=== PATIENT | female | born 1990 | race Caucasian/White ===

== ENCOUNTER → 2019-03-07 12:29 | Outpatient (BNVA) | payer MEDICAID, SELFPAY | PROVIDERS: Visit Provider Obstetrics & Gynecology | DX: O09.93 Supervision of high risk pregnancy, unspecified, third trimester (principal) | CPT/HCPCS: 81000 ==

== ENCOUNTER 2019-03-08 16:50 | Inpatient (IN) | payer MEDICAID, SELFPAY ==
[2019-03-08] VITALS (26 sets, daily range): BP systolic 0–148; BP diastolic 0–93; PULSE 86–116; RESP 18; TEMP 36.4–36.9; BMI 33.4
[2019-03-08] MEDS: miSOPROStol 100 mcg tablet 25 MCG VAGINAL ×2 (18:23→22:38)
[2019-03-08 18:45] LABS: Basophils % 0.3 %; Eosinophils # 0.1 10^3/uL (0.0-0.8); Eosinophils % 0.7 %; Hematocrit 36.1 % (37.0-47.0); Lymphocytes # 2.9 10^3/uL (0.8-4.8); Lymphocytes % 21.4 %; Mean Corpuscular HGB Conc 33.2 g/dL (30.0-36.0); Mean Corpuscular Hemoglobin 30.5 pg (28.0-34.0); Mean Corpuscular Volume 91.9 fL (81-99); Mean Platelet Volume 12.2 fL (7.4-10.4); Monocytes # 1.1 10^3/uL (0.2-0.9); Monocytes % 7.8 %; Neutrophils # 9.2 10^3/uL (1.8-7.7); Neutrophils % 69.1 %; Nucleated Red Blood Cells % 0 %; Platelet Count 232 10^3/cmm (130-400); Red Blood Count 3.93 10^6/uL (4.1-5.3); Red Cell Distribution Width 12.2 % (12.1-15.1); White Blood Count 13.4 10^3/uL (4.0-10.0)
[2019-03-08 19:21] LABS: Amphetamines Screen Urine Negative (Negative); Barbiturates Screen Urine Negative (Negative); Benzodiazepines Screen Urine Negative (Negative); Cocaine Screen Urine Negative (Negative); Opiate Screen Urine Negative (Negative); PCP Screen Urine Negative (Negative); THC Screen Urine Negative (Negative)
[2019-03-08] MEDS: fentaNYL 50 mcg/mL INJ 2mL IV (23:06)
[2019-03-09] VITALS (58 sets, daily range): BP systolic 0–156; BP diastolic 0–109; PULSE 60–114; RESP 16–19; TEMP 36.6–37.1; O2SAT 95–99
[2019-03-09] MEDS: fentaNYL 50 mcg/mL INJ 2mL IV (01:07)
[2019-03-09] MEDS: lactated ringers 1,000 ML 999 ML IV (02:12)
[2019-03-09] MEDS: dextrose 5%-lactated ringers 1,000 ML 125 ML IV (03:14)
[2019-03-09] MEDS: lidocaine 2% INJ 20 mL INJECTION ×2 (04:02→06:29)
--- NOTE | 2019-03-09 05:02 | P.PCNOB_ITS ---
Delivery Note: Date of delivery: 03/10/19 Pre-delivery diagnoses: Late term Post-delivery diagnoses: Late Term delivered Procedure: Spontaneous vaginal delivery Anesthesia: other (Pudendal block) Delivering Physician: Celestino Hernandez M.D. Estimated blood loss (mL): 300 Findings: Baby girl, OP presentation, Nuchal cord ?1, Apgars 3/8, weight 3250 g. Pre-Delivery Course: The patient is a 28yo at 41 weeks EGA who has been receiving care from [facility]. Admitted to labor and delivery for elective induction. She continues to feel movement between the contractions. She denies vaginal bleeding or rupture of membranes. LMP: 06/09/2018 Estimated date of confinement: 03/01/2019 by ultrasound CC: Induction at late term HPI: Received appropriate care. Daily vitamins since Start of care. labs have all been normal, including negative for HIV. She was found to Negative for Group B Strep from screening at 36 weeks. She has gained approximately 55 lbs throughout the . She denies a history of HTN during . Glucose tolerance screening for gestational diabetes was negative. Delivery: The patient was noted to be complete and pushing, so was placed in the dorsal lithotomy position, prepped and draped in the usual sterile fashion for a vaginal delivery. Pt. Noted to have epidural anesthesia. At time the patient delivered a Viable 41 week female weighing 3250 g with scores of 3 and 8 at one and five minutes, respectively. The vertex was delivered spontaneously over Intact perineum. The patient was asked to push and the head delivered spontaneously in the OP position, over an intact perineum. A nuchal cord was checked and 1 noted, and delivered through around head as necessary. The anterior shoulder delivered easily and the posterior shoulder followed. The remainder of the infant was easily delivered and the oropharynx and nasopharynx was bulb suctioned. The infant was noted to have spontaneous cry and spontaneous movement of all four extremities. The cord was clamped x 2 and cut and noted to have 2 arteries and one vein. The was passed to the Warmer where Nursing personnel were in attendance. The placenta delivered intact Spontaneously and the uterus Was explored. 20 units of Pitocin was placed in the IV bag to firm the uterus. Examination of the cervix and vaginal vault did not reveal any lacerations. A vaginal pack was then placed. Examination of the perineum showed First degree laceration. The First degree laceration was repaired with 3-0 Vicryl in the normal fashion in a running non locking fashion to reapproximate the laceration in layers. The vaginal pack was then removed. The patient tolerated this procedure well, and recovered in L&D with her infant OB bright. All sponge and needle counts were correct. Post-Delivery Status: Stable A&P Assessment and plan (1) Term delivered: Spontaneous vaginal delivery, first-degree laceration, baby girl, Apgars 3/8, weight 3250 g. Status: Acute Code(s): O80 - Encounter for full-term uncomplicated delivery Coding Level of Care Code Acute Switch Adjuster for Chg Fwd Diagnoses Term delivered O80
[2019-03-09] MEDS: HYDROcodone-acetaminophen 5-325 mg Tablet PO ×4 (05:31→20:56)
[2019-03-09] MEDS: oxytocin 30 UNIT/500 ML BAG 600 UNIT IV (06:30)
--- NOTE | 2019-03-09 09:27 | ANES.PREANES ---
Pre-Anesthetic Assessment Pre-Anesthetic Assessment: Height/Weight: Height 1.75 m Weight 227lbs Temp Pulse Resp BP Pulse Ox 98.2 F 84 16 121/81 97 03/09/19 08:35 03/09/19 08:35 03/09/19 08:35 03/09/19 08:35 03/09/19 08:35 Preop Diagnosis: undesired fertility Proposed Procedure: Operation Date: 03/09/19 10:20 Proposed Procedures p Bilateral Tubal Ligation(Not Applicable) - Celestino Hernandez MD Familial anesthetic complications: no problems Was Beta Tejas taken within 24 hours: N/A Last intake: pretzels and water at 0200 Social: Social History: Tobacco (couple cig a week) Exam: Pre-Anes Outpt Exam: alert, oriented x 3, clear to auscultation bilaterally and regular rate & rhythm Airway: Submandibular: WNL Cervical ROM: WNL MP: 2 Dentition: Loose (top, right side) History/ROS: No significant history except as noted and No significant complaints Pulmonary: Pulmonary: None reported CV/HEM: CV/HEM: None reported : : None reported Hepatic: Hepatic: Hepatitis (C) GI: GI: None reported Metabolic: Metabolic: None reported Musc/skel: Musc/skel: None reported Neuropsych: Neuropsych: None reported Anesthetic Plan: ASA status: II Anesthesia: General Risk of > 500 ml blood loss (7ml/kg in children): No Meds/Allergies Current Medications: Current Medications Generic Name Dose Route Start Last Admin Trade Name Freq PRN Reason Stop Dose Admin Hydrocodone Bitart /Acetaminophen 1 - 2 tab 03/09/19 05:13 03/09/19 05:31 [place] 5-325 Mg PO 2 tab Q6H PRN Administration MODERATE TO SEVER E PAIN Fentanyl 25 - 100 mcg 03/08/19 22:50 03/09/19 01:07 Sublimaze IV 50 mcg Q1H PRN Administration SEVERE PAIN Dextrose/Lactated Ringer's 1,000 mls @ 125 m ls/hr 03/08/19 23:15 03/09/19 08:24 Dextrose 5%-Lact ated Ringers IV 125 mls/hr .Q8H RAZIA Infusion Lactated Ringer's 1,000 mls @ 999 m ls/hr 03/09/19 02:00 03/09/19 03:13 Lactated Ringers IV Infused .Q1H1M PRN Infusion ANESTHESIA PFS Anesthesia Female Reproductive History: : 3 Data Anesthesia Labs: Other Labs: Laboratory Results - last 48 hr 03/08/19 03/08/19 17:30 17:50 WBC 13.4 H RBC 3.93 L Hgb 12.0 Hct 36.1 L MCV 91.9 MCH 30.5 MCHC 33.2 RDW 12.2 Plt Count 232 MPV 12.2 H Neut % (Auto) 69.1 Lymph % (Auto) 21.4 [place] % (Auto) 7.8 Eos % (Auto) 0.7 Baso % (Auto) 0.3 Neut # (Auto) 9.2 H Lymph # (Auto) 2.9 [place] # (Auto) 1.1 H Eos # (Auto) 0.1 Baso # (Auto) 0.0 Nucleated RBC % (a uto) 0 Nucleated RBCs # 0.0 Urine Opiates Scre en Negative Ur Barbiturates Sc reen Negative Ur Phencyclidine S crn Negative Ur Amphetamines Sc reen Negative U Benzodiazepines Scrn Negative Urine Cocaine Scre en Negative U Marijuana (THC) Screen Negative Cardiac Studies: No Data to Display
--- NOTE | 2019-03-09 10:09 | P.PN_ITS ---
Subjective Subjective: Interval history: 28-year-old female G3, P3 status post vaginal delivery desires permanent sterilization. Vitals/I&O/Wt Last Vital Signs Temp 98.3 F 03/09/19 09:14 Pulse 77 03/09/19 09:14 Resp 16 03/09/19 09:14 BP 123/79 03/09/19 09:14 Pulse Ox 97 03/09/19 09:14 03/08/19 03/09/19 03/09/19 22:59 06:59 14:59 Intake Total 1000 / 1000 1145.833 / 1145.833 Output Total 400 / 400 Balance 1000 / 1000 745.833 / 745.833 Weight last 48 hrs Weight 7.972 oz Weight 226 lb 7.972 oz Physical Exam Narrative: EXAM NARRATIVE: GA; alert and oriented x 3 HEENT: normal Breasts: engorged Nipples - skin intact Lungs; clear to auscultation Heart: regular rhythm, no murmurs. Abd: Appropriately tender. BS+. Uterine fundus below umbilicus. No Fundal Tenderness. Perineum: normal lochia. Extremities: no edema, no cyanosis, no tenderness. A&P Assessment and plan (1) Term delivered: Status: Acute Code(s): O80 - Encounter for full-term uncomplicated delivery Additional A&P Information Additional A&P Information: 28-year-old female G 3 P 3 status post spontaneous vaginal delivery desire permanent sterilization requesting tubal ligation. The patient was counseled regarding all methods of contraception, risk and complications. She elected to continue to proceed with the tubal ligation as planned. partial salpingectomy is associated with lower failure rates than interval tubal occlusions done via laparoscopy. She was counseled regarding the procedure, alternative, risks and complications. Complications of tubal sterilization include problems like but not limited to anesthesia, hemorrhage, organ damage, and mortality. Although pregnancies after a sterilization procedure are rare, there is substantial risk that any post-jenn rilization could be ectopic. The overall failure rate is on the order of 0.5% in the first year but a study showed that sterilization failures vary by both age at sterilization and the method used. The study also found that the risks of accumulate over time, and that for women aged 18 to 27 years, failure rates can be as high as 5% with bipolar coagulation and the spring clip. The patient was informed of the risks and benefits of the procedure. Risks included but were not limited to bleeding, infection, and injury to internal organs. The patient was counseled on the risk of sterilization failure. The patient was informed that in the event a occurs the risk of ectopic is increased. The patient was counseled that bilateral tubal ligation is intended to be permanent and nonreversible. She was also counseled that there are nonpermanent forms of control available to her. The patient expressed understanding of the risks involved, all questions were answered, and the patient consented to the procedure. Attestations Medical Necessity Statement*: In my professional opinion per admitting diagnosis Coding Level of Care Code Acute Automat Car Attendant for g Fwd Diagnoses Term delivered O80
[2019-03-09] MEDS: ceFAZolin 1,000 MG in sodium chloride 0.9% (plus) 50 ML 100 MG IV (10:25)
[2019-03-09] MEDS: sodium chloride 0.9% 1,000 ML 30 ML IV (10:27)
--- NOTE | 2019-03-09 11:11 | PM.OP ---
Operative Report Post-Operative Note Date of procedure: 03/09/19 Preop Diagnosis: Status post spontaneous vaginal delivery, desires permanent sterilization Post-op diagnosis: same Post-op Findings: Enlarged uterus Procedure Done: bilateral tubal ligation via partial salpingectomy Specimens removed/disposition: Left and right fallopian tube Surgeon: Celestino Hernandez Estimated blood loss (mL): 5 IV fluids (mL): 700 Urine output (mL): 500 Complications: None Findings: Enlarged uterus Operative Report Brief History: 28-year-old female G3, P3 status post continuous vaginal delivery desires permanent sterilization. Procedure: After assuring informed consent. The patient was informed of the risks and benefits of the procedure. Risks included but were not limited to bleeding, infection, and injury to internal organs. The patient was counseled on the risk of sterilization failure. The patient was informed that in the event a occurs the risk of ectopic is increased. The patient was counseled that bilateral tubal ligation is intended to be permanent and nonreversible. She was also counseled that there are nonpermanent forms of control available to her. The patient expressed understanding of the risks involved, all questions were answered, and the patient consented to the procedure. The patient was taken to the operating room and general anesthesia administered. Time-out procedure was performed. A small, transverse, infraumbilical skin incision was made with a scalpel, and the incision was carried down through the underlying fascia until the peritoneum was identified and entered. The left fallopian tube was identified, brought into the incision and grasped with a Lauro clamp. The tube was then followed out to the fimbria. An avascular midsection of the fallopian tube was grasped with a Bruneau clamp and brought into a knuckle. The tube was doubly ligated with an O-plain suture and transected. The specimen was sent to pathology. Excellent hemostasis was noted, and the tube was returned to the abdomen. The same procedure was performed on the opposite fallopian tube. The fascia was then closed with O-Vicryl in a single layer. The skin was closed with 3-O Monocryl in a subcuticular fashion. The patient tolerated the procedure well. Needle and sponge counts were correct times 3.
--- NOTE | 2019-03-09 11:50 | PM.PACU ---
PACU note Post-Anesthesia Exam: awake and vital signs stable
[2019-03-09] MEDS: fentaNYL 50 mcg/mL INJ 2mL IVP (12:31)
[2019-03-09 17:14] LABS: Hemoglobin 10.8 g/dL (11.5-15.3); Mean Corpuscular HGB Conc 32.7 g/dL (30.0-36.0); Mean Corpuscular Volume 88.7 fL (81-99); Mean Platelet Volume 11.5 fL (7.4-10.4); Platelet Count 208 10^3/cmm (130-400); Red Blood Count 3.72 10^6/uL (4.1-5.3); Red Cell Distribution Width 12.2 % (12.1-15.1); White Blood Count 17.7 10^3/uL (4.0-10.0)
[2019-03-09] MEDS: docusate sodium 100 mg Capsule PO (19:02)
[2019-03-10] MEDS: HYDROcodone-acetaminophen 5-325 mg Tablet PO ×2 (02:09→08:09)
[2019-03-10 04:00] VITALS: BP 110/70; PULSE 80; RESP 16; TEMP 36.6
[2019-03-10 07:05] LABS: Hematocrit 30.3 % (37.0-47.0); Hemoglobin 9.8 g/dL (11.5-15.3); Mean Corpuscular HGB Conc 32.3 g/dL (30.0-36.0); Mean Corpuscular Hemoglobin 30.4 pg (28.0-34.0); Mean Corpuscular Volume 94.1 fL (81-99); Mean Platelet Volume 11.6 fL (7.4-10.4); Platelet Count 185 10^3/cmm (130-400); Red Blood Count 3.22 10^6/uL (4.1-5.3); Red Cell Distribution Width 12.3 % (12.1-15.1); White Blood Count 13.7 10^3/uL (4.0-10.0)
[2019-03-10] MEDS: prenatal vitamin Capsule 1 CAP PO (08:09)
[2019-03-10] MEDS: docusate sodium 100 mg Capsule PO (08:09)
--- NOTE | 2019-03-10 08:42 | PM.OBGYDC ---
Discharge Providers [employer]PER[employer] Date of Admission: 03/08/19 16:50 Date of Discharge: 03/10/19 Attending Provider at Admission: Celestino Hernandez MD Attending Provider at Discharge: Celestino Hernandez MD Primary Care Provider: ROBERT Aguayo Diagnoses at Discharge Discharge Diagnosis (1) Term delivered: Status: Acute Problem details: Status post spontaneous vaginal delivery and bilateral tubal ligation Without complications postoperative day 1. Reason for Visit Reason for Visit: Reason For Visit: induction Hospital Course Hospital Course: Patient was admitted Labor and Delivery for scheduled induction. She received misoprostol for cervical ripening and progressed to have a spontaneous vaginal delivery without complications. She had requested a tubal ligation and post delivery she was scheduled for Bilateral tubal ligation via modified Royer. The permanent sterilization was performed without complications. Postoperative/ observation was uneventful. She is afebrile hemodynamically stable. Tolerating diet well. Ambulating without difficulty. Information Peripartum Data: Delivery Method: Vaginal Physical Exam Narrative: EXAM NARRATIVE: GA; alert and oriented x 3 HEENT: normal Breasts: engorged Nipples - skin intact Lungs; clear to auscultation Heart: regular rhythm, no murmurs. Abd: Appropriately tender. BS+. Uterine fundus below umbilicus. No Fundal Tenderness. Perineum: normal lochia. Extremities: no edema, no cyanosis, no tenderness. Urinary Catheter Management^: Garcia: Cath Placed During This Visit: no Discharge Data Data Completed and Pending: Pending at discharge Category Date Time Status Pathology: Surgic al [PTH] Routine Pth 03/09/19 11:01 Ordered Labs from last 24 hours 03/10/19 03/09/19 06:30 16:43 WBC 13.7 H 17.7 H RBC 3.22 L 3.72 L Hgb 9.8 L 10.8 L Hct 30.3 L 33.0 L MCV 94.1 D 88.7 MCH 30.4 29.0 MCHC 32.3 32.7 RDW 12.3 12.2 Plt Count 185 208 MPV 11.6 H 11.5 H Vitals: Last Vital Signs Temp 97.9 F 03/10/19 04:00 Pulse 80 03/10/19 04:00 Resp 16 03/10/19 04:00 BP 110/70 03/10/19 04:00 Pulse Ox 98 03/09/19 20:30 Discharge Plan Discharge Patient Disposition: Home, Self-Care Condition: Stable Prescriptions: New hydrocodone-acetaminophen 5-325 mg Tablet 1 - 2 tab PO Q4H PRN (Reason: Moderate To Severe Pain) Qty: 30 RF: 0 ibuprofen 800 mg Tablet 800 mg PO TID Qty: 60 RF: 0 docusate sodium 100 mg Capsule 100 mg PO BID Qty: 60 RF: 0 ferrous sulfate 325 mg (65 mg iron) tablet 325 mg PO BID Qty: 60 RF: 0 Continued 28 mg iron- 800 mcg Tablet 1 tab PO DAILY RF: 0 Discharge Orders: Discharge Order (Routine); Ordered 03/10/19 Ordered By: Celestino Hernandez Discharge Diet: Regular Discharge Activity: Increase activity as tolerated Patient Instructions: Female Sterilization, Vaginal Delivery (DC) Activity Restrictions/Additional Instructions: Pelvic rest for 6 weeks. 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
--- NOTE | 2019-03-10 08:58 | PC.NURSE ---
Incision clean, dry, and intact. Open to air. No redness or drainage noted. Incision at umbilicus.
[2019-03-10 12:11] VITALS: BP 126/83; PULSE 104; RESP 16; TEMP 36.7; O2SAT 98
== END 2019-03-10 12:10 | disposition home or self-care (01) | DRG 798 ==
PROVIDERS: Obstetrics & Gynecology; Admitting Provider Obstetrics & Gynecology; Visit Provider Obstetrics & Gynecology
PROC: 10E0XZZ Delivery of Products of Conception, External Approach (ICD-10-PCS; CPT 58605; principal; 2019-03-09 10:00)
DX: O48.0 Post-term pregnancy (principal); Z37.0 Single live birth; O99.334 Smoking (tobacco) complicating childbirth; F17.210 Nicotine dependence, cigarettes, uncomplicated; Z3A.41 41 weeks gestation of pregnancy; O69.81X0 Labor and delivery complicated by cord around neck, without compression, not applicable or unspecified; Z30.2 Encounter for sterilization; O70.0 First degree perineal laceration during delivery
CPT/HCPCS: 36415; 36416; 51702; 59409; 80307; 85025; 85027; 88302; 96374; 96375; 99211; J0690; J1100; J1885; J2001; J2405; J2704; J2710; J3010; J3490; J7030

== ENCOUNTER 2021-01-10 14:10 | Emergency (ER) | payer MEDICAID, SELFPAY ==
[2021-01-10 14:30] VITALS: BP 142/96; PULSE 100; RESP 20; TEMP 37; O2SAT 98; BMI 39.9
--- NOTE | 2021-01-10 14:56 | W.ED.DENTAL ---
HPI - Dental/Oral General: Chief complaint: Dental/Oral Stated complaint: Face Swelling/Dental Related Time Seen by Provider: 01/10/21 14:41 History of Present Illness: HPI Narrative: Patient is a 30-year-old female comes to the ED with dental pain and right-sided facial swelling. Dental pain started approximately 3 days ago. Dental pain is located around tooth #3. This morning she woke up and had some swelling in her upper right side of face. Pain is rated a 9 out of 10. Patient has a appointment with her dentist this January 12. Associated symptoms: Denies fever(s) or odynophagia Review of Systems Const: Denies: fever(s), chills or fatigue Eyes: Denies: change in vision or eye discomfort ENMT: Reports: dental pain; Denies: throat pain, odynophagia, nasal discharge or nasal congestion Card: Denies: chest pain, palpitations, edema, swelling of feet/ankles, dyspnea on exertion or orthopnea Resp: Denies: dyspnea, productive cough or non-productive cough GI: Denies: abdominal pain, nausea, vomiting, diarrhea, constipation or hematochezia : Denies: flank pain, dysuria or hematuria Musc: Denies: neck pain, back pain or extremity swelling Skin/Breast: Denies: rash or new lesions Neuro: Denies: headache(s), numbness in extremities or weakness in extremities PFSH ED PFSH: Medical History Hepatitis C Patient denies medical problems Denies history of: htn,dm,heart,lung,liver,kidney,thyroid,dvt/pe Surgical History History of cholecystectomy (~2015) Laparoscopy. Performed at [facility] in [place]. Hx of tubal ligation (~02/2019) Family History Unknown Patient denies medical problems Patient denies any family history of hypertension, diabetes, heart disease, stroke, hypercholesterolemia, thyroid problems, breast cancer, ovarian cancer, uterine cancer, colon ca Social History Smoking and tobacco status: current every day smoker cigarettes [ Other cigarette details: 5 cigarettes/week ] Alcohol intake: former Year of sobriety/quit date alcohol: 2018 Other details last substance use: 05/2018 Female Reproductive History: Date of last menstrual period: 01/10/21 Physical Exam Const: COMMON NORMALS: no acute distress, patient oriented x3 and alert GENERAL APPEARANCE: cooperative and comfortable HENMT: COMMON NORMALS: normocephalic HEAD & SCALP: normocephalic FACE & SINUS: edema on the right maxilla and Facial tenderness on exam of face and sinuses on the right maxilla MOUTH: Normal oral and palatal mucosa present TEETH & GINGIVA: Yes abnormal tooth and associated gingiva upper right first molar tender and with associated gingival edema, Yes caries and Yes poor dentition THROAT: posterior oropharynx normal and uvula midline Neck/C-Spine: COMMON NORMALS: supple GENERAL: Yes normal visual inspection Resp: COMMON NORMALS: normal respiratory effort, No retractions, No use of accessory muscles and clear to auscultation bilaterally AUSCULTATION: clear to auscultation bilaterally Cardio: COMMON NORMALS: regular rate, regular rhythm, S1 normal heart sound present, S2 normal heart sound present, No gallops present (Cardio), No clicks present (Cardio), No murmurs present (Cardio) and Peripheral pulses 2+ throughout RATE: regular rate RHYTHM: regular rhythm HEART SOUNDS: S1 normal heart sound present and S2 normal heart sound present PERIPHERAL PULSES: Peripheral pulses 2+ throughout GI: COMMON NORMALS: Normal to inspection, nondistended, normoactive bowel sounds present, Soft to palpation, non-tender and no masses PALPATION: Yes Soft to palpation : COMMON NORMALS: Yes no CVA tenderness BLADDER/KIDNEY EXAM: Yes no CVA tenderness Back/Pelvis: COMMON NORMALS: no CVA tenderness Extremity: COMMON NORMALS: normal to inspection Neuro: COMMON NORMALS: patient oriented x3 and moves all extremities SENSORIUM/ORIENTATION: Yes alert Skin: GENERAL SKIN EXAM: dry skin Course Vital Signs: Vital signs: Vital Signs Temperature 98.6 F 01/10/21 14:30 Pulse Rate 92 01/10/21 15:08 Respiratory Rate 18 01/10/21 15:08 Blood Pressure 144/91 01/10/21 15:08 Pulse Oximetry 99 01/10/21 15:08 MDM - Dental/Oral MDM Narrative: Medical decision making narrative: Patient is a 30-year-old female comes to the ED with dental pain. Patient has an appointment with a dentist on MondayJanuary 12. Patient was discharged home with a prescription for ibuprofen 800, clindamycin and prednisone to help with some of the facial swelling. Return to ED precautions given. Patient understood agree with plan. Discharge Plan Discharge Patient Disposition: Home Clinical Impression: Dental infection Condition: Stable Prescriptions: New ibuprofen 800 mg tablet 800 mg PO Q8H PRN (Reason: pain) Qty: 20 RF: 0 clindamycin HCl 150 mg capsule 300 mg PO QID 7 Days Qty: 56 RF: 0 prednisone 20 mg tablet 20 mg PO BID 3 Days Qty: 6 RF: 0 No Action ibuprofen 800 mg Tablet 800 mg PO TID Qty: 60 RF: 0 docusate sodium 100 mg Capsule 100 mg PO BID Qty: 60 RF: 0 ferrous sulfate 325 mg (65 mg iron) tablet 325 mg PO BID Qty: 60 RF: 0 Discharge Orders: Discharge ED (Routine); Ordered 01/10/21 Ordered By: Sean Barnes Discharge Diet: Regular Discharge Activity: Resume usual activity Patient Instructions: Dental Caries (Cavities), Toothache (ED) Activity Restrictions/Additional Instructions: Follow-up with your dentist at your scheduled appointment on January 12. Take medications as prescribed. Return to the ER or your medical provider if condition worsens. Please read and understand discharge instructions. Thank you for choosing [facility] for your healthcare needs today. Please realize this is an emergency room and that we are providing you with a medical screening exam and this may not be complete and all inclusive of all the testing and or work up that you may need to determine your ailment or severity of your illness. It is very important that you follow up as instructed or that you return to the Emergency Department should you have concerns or if your condition changes or worsens in any way. Coding Level of Care Code ED Casting Operator Helper for Prudencio Oropeza Exam Comprehensive
[2021-01-10 15:08] VITALS: BP 144/91; PULSE 92; RESP 18; O2SAT 99
[2021-01-10] MEDS: HYDROcodone-acetaminophen 7.5-325 mg Tablet 1 TAB PO (15:26)
== END 2021-01-10 16:20 | disposition home or self-care (01) ==
PROVIDERS: Emergency Provider Physician Assistant
DX: K04.7 Periapical abscess without sinus (principal); Z86.19 Personal history of other infectious and parasitic diseases; F17.210 Nicotine dependence, cigarettes, uncomplicated
CPT/HCPCS: 99283